=== PATIENT | male | born 1965 | race Caucasian/White ===

== ENCOUNTER 2016-07-11 19:06 | Emergency (ER) | payer BC, MEDICAID ==
[2016-07-11] MEDS ORDERED: SODIUM CHLORIDE 0.9% 250 ML IV ONE (20:56)
== END 2016-07-11 21:28 | disposition home or self-care (01) ==
LOC: ER 19:06
DX: R07.89 Other chest pain (principal); R53.1 Weakness; E87.6 Hypokalemia; I25.2 Old myocardial infarction; I10 Essential (primary) hypertension; E11.9 Type 2 diabetes mellitus without complications; Z95.1 Presence of aortocoronary bypass graft; Z79.01 Long term (current) use of anticoagulants; Z79.899 Other long term (current) drug therapy; F17.210 Nicotine dependence, cigarettes, uncomplicated
CPT/HCPCS: 36415; 71010; 80047; 80053; 81001; 82550; 83735; 84484; 85014; 85025; 85610; 85730; 93005; 96374